=== PATIENT | female | born 1995 | race African-American/Black ===

== ENCOUNTER 2020-10-26 18:06 | Emergency (ER) | payer OTHER ==
[~2020-10-26 18:06] MED LIST: ATARAX25 MG PO; BACTRIM DS TAB1 EACH PO; BENTYL10 MG PO; DICLOFENAC SODI75 MG PO; ELAVIL25 MG PO; FOLIC ACID1 M1 PO; SYNTHROID25 MCG PO; TESSALON PERLE100 MG PO; TOPAMAX25 MG PO; ZOFRAN8 MG PO
[2020-10-26 18:45] LABS: BASOPHIL 0.6 % (0-2); BILIRUBIN 1+ mg/dL (NEGATIVE); BLOOD 3+ Ery/uL (NEGATIVE); CLARITY HAZY (CLEAR); COLOR YELLOW (YELLOW); EOSINOPHIL 1.9 % (0-5); GLUCOSE (U) NORMAL (NORMAL); HCT 34.2 % (37.0-47.0); HGB 10.7 g/dl (12.5-16.0); LEUKOCYTES NEGATIVE Leu/uL (NEGATIVE); LYMPHOCYTE 36.5 % (15-48); MCH 23.2 pg (25.0-31.0); MCHC 31.3 g/dL (32.0-36.0); MCV 74.2 fL (78.0-100.0); MPV 9.1 fL (6.0-9.5); NEUTROPHIL 53.8 % (41-80); NITRITE NEGATIVE (NEGATIVE); NRBC 0; PLT 370 K/uL (150-400); PROTEIN 2+ mg/dL (NEGATIVE); RBC 4.61 M/uL (4.20-5.40); RDW 19.4 % (11.5-14.0); SPECIFIC GRAVITY >=1.030 (1.001-1.030); UROBILINOGEN 0.2 mg/dL (0.2-1.0); WBC 5.3 K/uL (4.0-10.5)
[2020-10-26 18:54] LABS: ALBUMIN 3.2 g/dL (3.4-5.0); BILIRUBIN - TOTAL 0.4 mg/dL (0.2-1.0); BUN/CREAT RATIO (CALC) 18.8 RATIO; CREATININE 0.64 mg/dL (0.51-0.95); GLOBULIN (CALCULATION) 4.5 g/dL; POTASSIUM 3.9 mmol/L (3.5-5.1); TOTAL PROTEIN 7.7 g/dL (6.4-8.2)
[2020-10-26 18:57] LABS: BACTERIA 2+; URINARY RBC TNTC
[2020-10-26] MEDS ORDERED: CYCLOBENZAPRINE10 MG PO (20:32)
[2020-10-26] MEDS ORDERED: DICLOFENAC SODI75 MG PO (20:32)
== END 2020-10-26 20:56 | disposition home or self-care (01) ==
LOC: FER 18:06
PROVIDERS: Internal Medicine
DX: S29.012A Strain of muscle and tendon of back wall of thorax, initial encounter (principal); F17.210 Nicotine dependence, cigarettes, uncomplicated; X58.XXXA Exposure to other specified factors, initial encounter
CPT/HCPCS: 36415; 71046; 80053; 81001; 83690; 85025; J1885

== ENCOUNTER 2020-11-03 22:29 | Emergency (ER) | payer OTHER ==
[~2020-11-03 22:29] MED LIST changes: +CYCLOBENZAPRINE10 MG PO
[2020-11-04 03:03] LABS: BILIRUBIN NEGATIVE (NEGATIVE); BLOOD NEGATIVE Ery/uL (NEGATIVE); CLARITY CLEAR (CLEAR); COLOR YELLOW (YELLOW); GLUCOSE (U) NORMAL (NORMAL); LEUKOCYTES NEGATIVE Leu/uL (NEGATIVE); NITRITE NEGATIVE (NEGATIVE); PROTEIN NEGATIVE (NEGATIVE); SPECIFIC GRAVITY >=1.030 (1.001-1.030); UROBILINOGEN 0.2 mg/dL (0.2-1.0)
[2020-11-04 03:11] LABS: BASOPHIL 0 % (0-2); EOSINOPHIL 0.1 % (0-5); HCT 34.8 % (37.0-47.0); HGB 10.9 g/dl (12.5-16.0); LYMPHOCYTE 8.7 % (15-48); MCH 23.2 pg (25.0-31.0); MCHC 31.3 g/dL (32.0-36.0); MONOCYTE 2.6 % (0-12); NEUTROPHIL 88.5 % (41-80); NRBC 0; PLT 360 K/uL (150-400); RDW 18.8 % (11.5-14.0); WBC 6.9 K/uL (4.0-10.5)
[2020-11-04 03:21] LABS: ALBUMIN 3.3 g/dL (3.4-5.0); BILIRUBIN - TOTAL 0.3 mg/dL (0.2-1.0); BUN/CREAT RATIO (CALC) 24.5 RATIO; CREATININE 0.53 mg/dL (0.51-0.95); GLOBULIN (CALCULATION) 4.6 g/dL; TOTAL PROTEIN 7.9 g/dL (6.4-8.2)
[2020-11-04] MEDS ORDERED: ONDANSETRON ODT4 MG SL (05:35)
[2020-11-04] MEDS ORDERED: PROTONIX 40MG T40 MG PO (05:35)
[2020-11-04] MEDS ORDERED: BENTYL10 MG PO (05:35)
[2020-11-04] MEDS ORDERED: NORCO 5-325 TA1 EACH PO (05:35)
== END 2020-11-04 05:58 | disposition home or self-care (01) ==
LOC: FER 22:29
PROVIDERS: Emergency Medicine Emergency Medical Services
DX: R10.10 Upper abdominal pain, unspecified (principal); R11.2 Nausea with vomiting, unspecified; K56.7 Ileus, unspecified; F17.210 Nicotine dependence, cigarettes, uncomplicated; Z79.899 Other long term (current) drug therapy; Z98.890 Other specified postprocedural states
CPT/HCPCS: 36415; 80053; 81003; 83605; 83690; 84145; 85025; 87339; J1885; J2405; J7030; Q9967

== ENCOUNTER 2021-01-08 13:21 | Emergency (ER) | payer OTHER ==
[~2021-01-08 13:21] MED LIST changes: +NORCO 5-325 TA1 EACH PO; +ONDANSETRON ODT4 MG SL; +PROTONIX 40MG T40 MG PO
[2021-01-08] MEDS ORDERED: MOTRIN600 MG PO (15:09)
== END 2021-01-08 15:45 | disposition home or self-care (01) ==
LOC: FER 13:21
DX: R07.89 Other chest pain (principal); F17.210 Nicotine dependence, cigarettes, uncomplicated
CPT/HCPCS: 71046; 93005

== ENCOUNTER 2021-02-28 01:10 | Emergency (ER) | payer OTHER ==
[~2021-02-28 01:10] MED LIST changes: +MOTRIN600 MG PO
[2021-02-28] MEDS ORDERED: MOTRIN600 MG PO (02:49)
[2021-02-28] MEDS ORDERED: PERCOCET 5-3251 EACH PO (02:49)
[2021-02-28] MEDS ORDERED: ONDANSETRON ODT4 MG SL (02:49)
== END 2021-02-28 03:23 | disposition home or self-care (01) ==
LOC: FER 01:10
DX: S83.511A Sprain of anterior cruciate ligament of right knee, initial encounter (principal); W19.XXXA Unspecified fall, initial encounter; Y93.89 Activity, other specified; Y92.830 Public park as the place of occurrence of the external cause
CPT/HCPCS: 73564; Q0162

== ENCOUNTER 2021-03-31 08:31 | Emergency (ER) | payer OTHER ==
[~2021-03-31] VITALS: Ht 144.8 cm; Wt 93.0 kg
[~2021-03-31 08:31] MED LIST changes: +PERCOCET 5-3251 EACH PO
[2021-03-31] MEDS ORDERED: FIORICET1 EACH PO (11:41)
== END 2021-03-31 11:58 | disposition home or self-care (01) ==
LOC: FER 08:31
DX: G43.909 Migraine, unspecified, not intractable, without status migrainosus (principal); Z98.890 Other specified postprocedural states
CPT/HCPCS: J1200; J1885; J2765; J7030

== ENCOUNTER 2021-05-23 01:46 | Emergency (ER) | payer OTHER ==
[~2021-05-23 01:46] MED LIST changes: +FIORICET1 EACH PO
[2021-05-23 02:32] LABS: BASOPHIL 0.5 % (0-2); EOSINOPHIL 1.8 % (0-5); HCT 31.8 % (37.0-47.0); HGB 9.6 g/dl (12.5-16.0); LYMPHOCYTE 45.6 % (15-48); MCH 21.5 pg (25.0-31.0); MCHC 30.2 g/dL (32.0-36.0); MCV 71.1 fL (78.0-100.0); MONOCYTE 7.4 % (0-12); MPV 8.7 fL (6.0-9.5); NEUTROPHIL 44.5 % (41-80); NRBC 0; PLT 349 K/uL (150-400); RBC 4.47 M/uL (4.20-5.40); RDW 20.2 % (11.5-14.0); WBC 5.7 K/uL (4.0-10.5)
[2021-05-23 02:41] LABS: BILIRUBIN NEGATIVE (NEGATIVE); BLOOD 3+ Ery/uL (NEGATIVE); CLARITY CLEAR (CLEAR); GLUCOSE (U) NORMAL (NORMAL); LEUKOCYTES NEGATIVE Leu/uL (NEGATIVE); NITRITE NEGATIVE (NEGATIVE); PROTEIN TRACE (LOW) mg/dL (NEGATIVE); SPECIFIC GRAVITY 1.025 (1.001-1.030); UROBILINOGEN 0.2 mg/dL (0.2-1.0); pH 6.5 (5.0-9.0)
[2021-05-23 02:47] LABS: COLOR RED (YELLOW)
[2021-05-23 02:52] LABS: URINARY RBC TNTC
[2021-05-23 02:54] LABS: ALBUMIN 3.1 g/dL (3.4-5.0); BILIRUBIN - TOTAL 0.1 mg/dL (0.2-1.0); BUN/CREAT RATIO (CALC) 26.9 RATIO; CREATININE 0.67 mg/dL (0.51-0.95); GLOBULIN (CALCULATION) 4.5 g/dL; TOTAL PROTEIN 7.6 g/dL (6.4-8.2)
[2021-05-23] MEDS ORDERED: NAPROXEN500 MG PO (04:08)
[2021-05-23] MEDS ORDERED: PROVERA10 MG PO (04:08)
[2021-05-24 20:07] LABS: CHLAMYDIA TRACHOMATIS, NAA Negative (Negative); NEISSERIA GONORRHOEAE, NAA Negative (Negative)
== END 2021-05-23 04:28 | disposition home or self-care (01) ==
LOC: FER 01:46
PROVIDERS: Internal Medicine
DX: N93.9 Abnormal uterine and vaginal bleeding, unspecified (principal); R10.2 Pelvic and perineal pain; D64.9 Anemia, unspecified
CPT/HCPCS: 36415; 80053; 81001; 84702; 85025; 86900; 86901; 87491; 87591; 99284; J1885

== ENCOUNTER 2021-10-22 03:03 | Emergency (ER) | payer OTHER ==
[~2021-10-22 03:03] MED LIST changes: +NAPROXEN500 MG PO; +PROVERA10 MG PO
[2021-10-22 04:06] LABS: BASOPHIL 0.6 % (0-2); EOSINOPHIL 0.6 % (0-5); HGB 9.4 g/dl (12.5-16.0); LYMPHOCYTE 21.4 % (15-48); MCH 21.3 pg (25.0-31.0); MCHC 30.3 g/dL (32.0-36.0); MCV 70.1 fL (78.0-100.0); MONOCYTE 6.9 % (0-12); MPV 8.7 fL (6.0-9.5); NEUTROPHIL 70.2 % (41-80); NRBC 0; PLT 326 K/uL (150-400); RBC 4.42 M/uL (4.20-5.40); RDW 17.6 % (11.5-14.0); WBC 6.5 K/uL (4.0-10.5)
[2021-10-22 04:24] LABS: ALBUMIN 3.1 g/dL (3.4-5.0); BILIRUBIN - TOTAL 0.1 mg/dL (0.2-1.0); BUN/CREAT RATIO (CALC) 26.5 RATIO; CREATININE 0.68 mg/dL (0.51-0.95); GLOBULIN (CALCULATION) 4.6 g/dL; TOTAL PROTEIN 7.7 g/dL (6.4-8.2)
[2021-10-22 04:43] LABS: CORONAVIRUS 2019 SARS-COV-2 NEGATIVE (NEGATIVE); INFLUENZA A NAA POSITIVE (NEGATIVE)
[2021-10-22] MEDS ORDERED: MOTRIN600 MG PO (05:34)
[2021-10-22] MEDS ORDERED: PROMETHAZINE/C120 ML PO (05:34)
[2021-10-22] MEDS ORDERED: TAMIFLU 75MG CA75 MG PO (05:34)
[2021-10-22] MEDS ORDERED: VENTOLIN HFA IN18 GM INH (05:34)
[2021-10-22] MEDS ORDERED: ONDANSETRON ODT4 MG PO (05:34)
[2021-10-22 05:49] LABS: BILIRUBIN NEGATIVE (NEGATIVE); BLOOD NEGATIVE Ery/uL (NEGATIVE); CLARITY CLEAR (CLEAR); COLOR YELLOW (YELLOW); GLUCOSE (U) NORMAL (NORMAL); LEUKOCYTES NEGATIVE Leu/uL (NEGATIVE); NITRITE NEGATIVE (NEGATIVE); PROTEIN NEGATIVE (NEGATIVE); SPECIFIC GRAVITY 1.025 (1.001-1.030); UROBILINOGEN 0.2 mg/dL (0.2-1.0)
== END 2021-10-22 05:56 | disposition home or self-care (01) ==
LOC: FER 03:03
PROVIDERS: Internal Medicine
DX: J10.1 Influenza due to other identified influenza virus with other respiratory manifestations (principal); D64.9 Anemia, unspecified; Z20.822 Contact with and (suspected) exposure to COVID-19; Z28.310 Unvaccinated for COVID-19
CPT/HCPCS: 36415; 71045; 80053; 81003; 85025; J1885; U0002

== ENCOUNTER 2021-11-24 21:41 | Emergency (ER) | payer OTHER ==
[~2021-11-24 21:41] MED LIST changes: +ONDANSETRON ODT4 MG PO; +PROMETHAZINE/C120 ML PO; +TAMIFLU 75MG CA75 MG PO; +VENTOLIN HFA IN18 GM INH
[2021-11-24 22:00] LABS: BASOPHIL 0.5 % (0-2); EOSINOPHIL 1.1 % (0-5); HCT 33.1 % (37.0-47.0); HGB 9.8 g/dl (12.5-16.0); LYMPHOCYTE 33.8 % (15-48); MCHC 29.6 g/dL (32.0-36.0); MCV 70.9 fL (78.0-100.0); MONOCYTE 8.3 % (0-12); MPV 8.5 fL (6.0-9.5); NEUTROPHIL 56.2 % (41-80); NRBC 0; PLT 351 K/uL (150-400); RBC 4.67 M/uL (4.20-5.40); RDW 18.6 % (11.5-14.0); WBC 7.9 K/uL (4.0-10.5)
[2021-11-24 22:18] LABS: ALBUMIN 3.1 g/dL (3.4-5.0); BILIRUBIN - TOTAL 0.1 mg/dL (0.2-1.0); BUN/CREAT RATIO (CALC) 21.3 RATIO; CREATININE 0.61 mg/dL (0.51-0.95); GLOBULIN (CALCULATION) 4.5 g/dL; MAGNESIUM 1.9 mg/dL (1.8-2.4); POTASSIUM 3.9 mmol/L (3.5-5.1); TOTAL PROTEIN 7.6 g/dL (6.4-8.2)
[2021-11-24 22:58] LABS: INFLUENZA A NAA NEGATIVE (NEGATIVE)
[2021-11-24 22:59] LABS: CORONAVIRUS 2019 SARS-COV-2 POSITIVE (NEGATIVE)
[2021-11-24] MEDS ORDERED: PROMETHAZINE/C120 ML PO (23:08)
== END 2021-11-24 23:19 | disposition home or self-care (01) ==
LOC: FER 21:41
PROVIDERS: Internal Medicine
DX: U07.1 COVID-19 (principal); J12.82 Pneumonia due to coronavirus disease 2019; D64.9 Anemia, unspecified; Z28.310 Unvaccinated for COVID-19
CPT/HCPCS: 36415; 71250; 80053; 83735; 84145; 84484; 85025; 93005; J2270; J2405; U0002

== ENCOUNTER 2021-12-08 19:57 | Emergency (ER) | payer OTHER ==
[2021-12-08 20:36] LABS: BASOPHIL 0.2 % (0-2); EOSINOPHIL 0.2 % (0-5); HGB 10.6 g/dl (12.5-16.0); LYMPHOCYTE 16.3 % (15-48); MCHC 30.3 g/dL (32.0-36.0); MCV 69.3 fL (78.0-100.0); MONOCYTE 3.9 % (0-12); MPV 9.3 fL (6.0-9.5); NEUTROPHIL 79.2 % (41-80); NRBC 0; PLT 379 K/uL (150-400); RBC 5.05 M/uL (4.20-5.40); WBC 5.6 K/uL (4.0-10.5)
[2021-12-08 20:45] LABS: ALBUMIN 3.2 g/dL (3.4-5.0); BILIRUBIN - TOTAL 0.3 mg/dL (0.2-1.0); BUN/CREAT RATIO (CALC) 17.2 RATIO; CREATININE 0.58 mg/dL (0.51-0.95); GLOBULIN (CALCULATION) 4.2 g/dL; POTASSIUM 3.9 mmol/L (3.5-5.1); TOTAL PROTEIN 7.4 g/dL (6.4-8.2)
[2021-12-08] MEDS ORDERED: NAPROXEN500 MG PO (22:51)
[2021-12-08] MEDS ORDERED: ONDANSETRON ODT4 MG PO (22:51)
[2021-12-08] MEDS ORDERED: NORCO 5-325 TA1 EACH PO (22:51)
[2021-12-08] MEDS ORDERED: PHENERGAN25 M1 PO (22:51)
[2021-12-08 23:19] LABS: BILIRUBIN NEGATIVE (NEGATIVE); BLOOD NEGATIVE Ery/uL (NEGATIVE); CLARITY CLEAR (CLEAR); COLOR YELLOW (YELLOW); GLUCOSE (U) NORMAL (NORMAL); LEUKOCYTES NEGATIVE Leu/uL (NEGATIVE); NITRITE NEGATIVE (NEGATIVE); PROTEIN NEGATIVE (NEGATIVE); SPECIFIC GRAVITY >=1.030 (1.001-1.030); UROBILINOGEN 0.2 mg/dL (0.2-1.0)
== END 2021-12-09 00:20 | disposition home or self-care (01) ==
LOC: FER 19:57
PROVIDERS: Internal Medicine
DX: R10.31 Right lower quadrant pain (principal); M54.50 Low back pain, unspecified; Z28.310 Unvaccinated for COVID-19
CPT/HCPCS: 36415; 80053; 81003; 84145; 85025; 96372; J1170; J2405

== ENCOUNTER → 2021-12-12 | Emergency (ER) | payer OTHER ==
[~2021-12-12] MED LIST changes: +PHENERGAN25 M1 PO
== END | disposition left against medical advice (07) ==
LOC: FER 18:00
DX: Z53.21 Procedure and treatment not carried out due to patient leaving prior to being seen by health care provider (principal)

== ENCOUNTER 2021-12-13 14:52 | Emergency (ER) | payer OTHER ==
[2021-12-13] MEDS ORDERED: NORCO 5-325 TA1 EACH PO (18:23)
== END 2021-12-13 18:34 | disposition home or self-care (01) ==
LOC: FER 14:52
DX: S32.2XXA Fracture of coccyx, initial encounter for closed fracture (principal)
CPT/HCPCS: 72040; 72072; 72100; 96372

== ENCOUNTER 2021-12-14 16:38 | Emergency (ER) | payer OTHER | END 2021-12-14 17:25 | disposition home or self-care (01) | LOC: FER 16:38 | DX: S32.2XXA Fracture of coccyx, initial encounter for closed fracture (principal); W01.0XXA Fall on same level from slipping, tripping and stumbling without subsequent striking against object, initial encounter | CPT/HCPCS: 96372; J1100; J1885 ==

== ENCOUNTER 2021-12-26 18:01 | Emergency (ER) | payer OTHER ==
[2021-12-26] MEDS ORDERED: CYCLOBENZAPRINE10 MG PO (21:07)
[2021-12-26] MEDS ORDERED: MEDROL 4MG DOSEP4 MG PO (21:07)
== END 2021-12-26 21:20 | disposition home or self-care (01) ==
LOC: FER 18:01
DX: S39.012A Strain of muscle, fascia and tendon of lower back, initial encounter (principal); S30.0XXA Contusion of lower back and pelvis, initial encounter; W19.XXXA Unspecified fall, initial encounter; Z28.310 Unvaccinated for COVID-19
CPT/HCPCS: 72100; 72220; J1885

== ENCOUNTER 2022-02-22 18:00 | Emergency (ER) | payer OTHER ==
[~2022-02-22 18:00] MED LIST changes: +MEDROL 4MG DOSEP4 MG PO
[2022-02-22 19:34] LABS: BASOPHIL 0.5 % (0-2); EOSINOPHIL 1.1 % (0-5); HCT 33.4 % (37.0-47.0); HGB 10.1 g/dl (12.5-16.0); MCH 21.8 pg (25.0-31.0); MCHC 30.2 g/dL (32.0-36.0); MONOCYTE 7.3 % (0-12); MPV 8.8 fL (6.0-9.5); NEUTROPHIL 59.9 % (41-80); NRBC 0; PLT 392 K/uL (150-400); RBC 4.64 M/uL (4.20-5.40); RDW 18.6 % (11.5-14.0); WBC 6.6 K/uL (4.0-10.5)
[2022-02-22 19:52] LABS: BUN/CREAT RATIO (CALC) 17.6 RATIO; CREATININE 0.68 mg/dL (0.51-0.95); POTASSIUM 3.7 mmol/L (3.5-5.1)
[2022-02-22] MEDS ORDERED: FIORICET1 EACH PO (21:39)
[2022-02-22] MEDS ORDERED: NORCO 5-325 TA1 EACH PO (21:39)
== END 2022-02-22 21:50 | disposition home or self-care (01) ==
LOC: FER 18:00
PROVIDERS: Nurse Practitioner Family
DX: G43.909 Migraine, unspecified, not intractable, without status migrainosus (principal)
CPT/HCPCS: 36415; 80048; 85025; J1100; J1200; J1885; J2405; J7030